=== PATIENT | female | born 1960 | race Caucasian/White ===

== ENCOUNTER 2017-08-12 16:04 | Emergency (ER) | payer OTHER ==
[~2017-08-12] VITALS: Ht 144.8 cm; Wt 51.3 kg
[2017-08-12] MEDS ORDERED: TOPROL XL50 M1 (16:24)
[2017-08-12] MEDS ORDERED: NEXIUM40 M1 (16:25)
[2017-08-12] MEDS ORDERED: SYNTHROID112 MCG (16:25)
[2017-08-12] MEDS ORDERED: CYMBALTA60 MG (16:25)
[2017-08-12] MEDS ORDERED: SIMVASTATIN40 MG (16:26)
== END 2017-08-12 21:03 | disposition home or self-care (01) ==
LOC: ER 16:04
DX: J11.1 Influenza due to unidentified influenza virus with other respiratory manifestations (principal); J40 Bronchitis, not specified as acute or chronic

== ENCOUNTER → 2023-12-24 13:51 | Outpatient (CLI) | payer OTHER ==
[~2023-12-24 13:51] MED LIST: CYMBALTA60 MG; NEXIUM40 M1; SIMVASTATIN40 MG; SYNTHROID112 MCG; TOPROL XL50 M1
== END | disposition home or self-care (01) ==
LOC: RAD 13:51
DX: M25.561 Pain in right knee (principal); M25.521 Pain in right elbow